=== PATIENT | male | born 1995 | race Caucasian/White ===

== ENCOUNTER 2017-07-09 08:07 | Day surgery (SDC) | payer OTHER ==
[2017-07-09] MEDS ORDERED: ceFAZolin 2 GM/SWFI 2 GM/20 ML SYR IVP ONE (08:25)
[2017-07-09] MEDS ORDERED: LR 1,000 ML IV ONE (08:33)
[2017-07-09] MEDS ORDERED: BUPIVACAINE 0.5% 30 ML SDV ONE (09:13)
[2017-07-09] MEDS ORDERED: BACITRACIN 50,000 UNITS/10 ML SYR IRR ONE (09:14)
--- NOTE | 2017-07-09 10:49 | PDHPUP ---
History & Physical Update H&P update statement: This history and physical update is based on an assessment of the patient which was completed after admission or registration (within 24 hours), but prior to the surgery/procedure. H&P update: H&P reviewed & patient examined, no change in patient's condition since H&P completed
[2017-07-09] MEDS ORDERED: fentaNYL 100 MCG/2 ML INJ ONE (10:53)
[2017-07-09] MEDS ORDERED: MIDAZOLAM 2 MG/2 ML VIAL ONE (10:53)
[2017-07-09] MEDS ORDERED: PROPOFOL/EMULSION 500 MG/50 ML BOTTLE IV ONE (10:53)
[2017-07-09] MEDS ORDERED: PROPOFOL 200 MG/20 ML VIAL ONE (11:15)
[2017-07-09] MEDS ORDERED: PROMETHAZINE HCL 25 MG/ML INJ IVP PRN (11:23)
[2017-07-09] MEDS ORDERED: LR 500 ML IV PRN (11:23)
[2017-07-09] MEDS ORDERED: fentaNYL 100 MCG/2 ML INJ IVP PRN (11:23)
[2017-07-09] MEDS ORDERED: ACETAMINOPHEN 500 MG TAB PO PRN (11:23)
[2017-07-09] MEDS ORDERED: ONDANSETRON 4 MG/2 ML VIAL IVP PRN (11:23)
[2017-07-09] MEDS ORDERED: HYDROCODONE/APAP 5/325 TAB PO PRN (11:23)
[2017-07-09] MEDS ORDERED: ALBUTEROL 3 ML DEYVIAL IH PRN (11:23)
[2017-07-09] MEDS ORDERED: NALOXONE HCL 0.4 MG/ML INJ IVP PRN (11:23)
[2017-07-09] MEDS ORDERED: DEXAMETHASONE 4 MG/ML VIAL IVP PRN (11:23)
[2017-07-09] MEDS ORDERED: METOCLOPRAMIDE 10 MG/2 ML VIAL IVP PRN (11:23)
[2017-07-09] MEDS ORDERED: OXYCODONE/APAP 5/325 TAB PO PRN (11:23)
--- NOTE | 2017-07-09 11:23 | PDANEPAE ---
ANE Past Medical History - Cardiovascular History Hx Hypertension: No Hx Arrhythmias: No Hx Chest Pain: No Hx Coronary Artery / Peripheral Vascular Disease: No Hx CHF / Valvular Disease: No Hx Palpitations: No - Pulmonary History Hx COPD: No Hx Asthma/Reactive Airway Disease: No Hx Recent Upper Respiratory Infection: No Hx Oxygen in Use at Home: No Hx Sleep Apnea: No Sleep Apnea Screening Result - Last Documented: Negative - Neurologic History Hx Cerebrovascular Accident: No Hx Seizures: No Hx Dementia: No - Endocrine History Hx Diabetes: No - Renal History Hx Renal Disorders: No - Liver History Hx Hepatic Disorders: No - Neurological & Psychiatric Hx Hx Neurological and Psychiatric Disorders: No - Cancer History Hx Cancer: No - Congenital Disorder History Hx Congenital Disorders: No - GI History Hx Gastrointestinal Disorders: No - Other Health History Other Health History: NA - Surgical History Prior Surgeries: NA ANE Review of Systems Review of Systems: - Exercise capacity METS (RN): 6 METS ANE Patient History - Allergies Allergies/Adverse Reactions: No Known Allergies Allergy (Unverified 07/07/17 16:23) - NPO status NPO Since - Liquids (Date): 07/08/17 NPO Since - Liquids (Time): 23:00 NPO Since - Solids (Date): 07/08/17 NPO Since - Solids (Time): 22:00 - Smoking Hx Smoking Status: Never smoked - Family Anes Hx Family Hx Anesthesia Complications: NA ANE Labs/Vital Signs - Vital Signs Blood Pressure: 115/64 Heart Rate: 48 Respiratory Rate: 14 O2 Sat (%): 98 Height: 187.96 cm Weight: 81.647 kg ANE Physical Exam - Airway Neck exam: FROM Mallampati Score: Class 1 Mouth exam: normal dental/mouth exam - Pulmonary Pulmonary: no respiratory distress, no rales or rhonchi, clear to auscultation - Cardiovascular Cardiovascular: regular rate and rhythym, no murmur, rub, or gallop - ASA Status ASA Status: I ANE Anesthesia Plan Anesthesia Plan: GA w LMA
[2017-07-09] MEDS ORDERED: METOCLOPRAMIDE 10 MG/2 ML VIAL ONE (12:11)
[2017-07-09] MEDS ORDERED: KETOROLAC 30 MG/1 ML SDV ONE (12:11)
[2017-07-09] MEDS ORDERED: DEXAMETHASONE 4 MG/ML VIAL ONE (12:11)
[2017-07-09] MEDS ORDERED: ONDANSETRON 4 MG/2 ML VIAL ONE (12:11)
[2017-07-09] MEDS ORDERED: RANITIDINE 50 MG/2 ML VIAL ONE (12:11)
[2017-07-09 12:59] VITALS: TEMP 97.5
--- NOTE | 2017-07-09 13:07 | POSTANESTH ---
Post Anesthetic Evaluation Cardiovascular Status: Normal, Stable Respiratory Status: Normal, Stable Level of Consciousness/Mental Status: Can Participate in Eval Pain Control: Adequate, Prn Tx Ordered Nausea/Vomiting Control: Adequate, Prn Tx Ordered Complications Possibly Related to Anesthesia: None Noted
[2017-07-09 13:16] VITALS: PULSE 52; RESP 16
[2017-07-09 13:26] VITALS: O2SAT 100
[2017-07-09 14:43] VITALS: BP 110/75
--- NOTE | 2017-07-09 22:19 | GOP ---
[f rep st] OPERATIVE REPORT DATE OF OPERATION: SURGEON: Al Veliz MD PREOPERATIVE DIAGNOSIS: Right thumb ulnar collateral ligament tear. POSTOPERATIVE DIAGNOSIS: Right thumb ulnar collateral ligament tear with standard lesion. PROCEDURE PERFORMED: Right thumb ulnar collateral ligament repair with Arthrex internal brace. FINDINGS: ESTIMATED BLOOD LOSS: Less than 5 cc. DESCRIPTION OF PROCEDURE: The patient was seen in the preoperative holding area. Consents are confi rmed and signed after he was given the opportunity to ask any more questions.. All his questions were answered. Surgical site was marked. He was then taken to the operating suite. Care was taken to t ransfer him from the rney to the operating room table. Care was taken to pad all bony prominences prior to the induction of anesthesia. General anesthesia was induced by the anesthesia team. Time-o ut was called, including surgical and anesthesia teams, confirming the surgical site and procedure to be performed. 2 g of Ancef were given prior to incision. The right upper extremity was prepped and draped in the usual sterile fashion. Esmarch was used to exsanguinate the right upper extremity, an d tourniquet was inflated to 250 mmHg. A curvilinear incision was made over the ulnar aspect of the thumb MP joint. Carefully dissected down through the skin to the level of the adductor aponeurosis a nd extensor mechanism. One of the branches of the radial sensory nerve was identified. This was pro tected at all times. The portion of the ligament was seen above the adductor aponeurosis, which gladis cated a standard lesion. The adductor aponeurosis was then taken down with a small cuff from the ext ensor mechanism for later repair. I then visualized the capsule. The joint capsule was incised dors ally, dorsal to the collateral ligament. The collateral ligament was then visualized well. There wa s a small, bony fragment of the ligament that was visualized that had been avulsed. This was a compl ete rupture. The avulsion site was cleaned up. A 35 DX SwiveLock was then placed into the proximal phalanx at the insertion of the ligament. A 2-0 FiberWire and a 1.2 mm SutureTape were then loaded i nto the SwiveLock. The anchor was placed in standard fashion. The suture loaded into the anchor was then used to repair the tendon and the ligament anatomically. This provided a nice spot repair, and it was stable to exam. It was tensioned at 30 degrees flexion. At this point, I drilled for anothe r DX SwiveLock just proximal to the proximal insertion origin of the collateral ligament. The Suture Tape was then loaded into the SwiveLock, tensioned, and the SwiveLock was placed in standard fashion. This completed the augmentation of his repair with the SutureTape. At this point, the wound was ir rigated. The capsule was closed with 3-0 Monocryl. The aponeurosis was closed with 3-0 Monocryl. T he wound was then closed in layers with the 4-0 Monocryl. Prior to doing so, the tourniquet was let down, and all bleeding was controlled. Again, care was taken to protect a branch of the SBRN. The w ound was closed in a subcuticular running fashion. Steri-Strips were applied. A sterile dressing wa s applied, and patient placed in a thumb spica splint, awakened from general anesthesia in stable con dition, and then taken to the PACU in stable condition. IMPLANTS USED: Arthrex 35 DX SwiveLock x2, with 1.3 mm SutureTape. INDICATIONS FOR THE PROCEDURE: This is a 22-year-old male who sustained this injury 4 days ago while skiing at [place]. He hit a rock and took a fall, possibly hitting a pole against his thumb. After the incident, he had thumb pain. He was seen in the [place] kettle skimmer. X-ray was taken, which showed an avulsion fracture of his UCL. This was a displaced avulsion fracture, which indicat ed likely a displaced UCL complete tear. He was placed in a thumb base cast there to protect him. W as seen by me in the office. Reviewed the x-rays. Discussed with him and his mom the options. 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 Surgical repair is indicative for him. Discussed the risks and benefits of the surgery with him. The risks include pain, bleeding, infection, joint stiffness, joint instabi lity or UCL insufficiency, numbness, need for further surgeries. They understood the risks, and wish ed to proceed. POSTOPERATIVE CONDITION: Stable. POSTOPERATIVE PLAN: The patient is returning to school in [place]. Postoperative therapy prot ocol was provided to him, and he will follow up in [place]. He is instructed to call me if the re are any questions. He is instructed to follow up in 10-14 days to have his thumb spica splint gal nged over to a hand-based opponens type of splint. He is allowed gentle range of motion of his thumb , and he can begin strengthening in about 5 weeks. /[id number]/MODL
== END 2017-07-09 14:32 | disposition home or self-care (01) ==
LOC: FSGY 08:07
PROVIDERS: ATTEND Orthopaedic Surgery Hand Surgery
PROC: 0MQ70ZZ Repair Right Hand Bursa and Ligament, Open Approach (ICD-10-PCS; principal; 2017-07-09 09:30)
DX: S63.641A Sprain of metacarpophalangeal joint of right thumb, initial encounter (principal); Y93.23 Activity, snow (alpine) (downhill) skiing, snowboarding, sledding, tobogganing and snow tubing; V00.321A Fall from snow-skis, initial encounter
CPT/HCPCS: C1713; J0690; J1100; J1885; J2250; J2405; J2704; J2765; J2780; J3010